=== PATIENT | female | born 1995 ===

== ENCOUNTER 2023-01-01 10:27 | Outpatient (AMB) | payer OTHER, SELFPAY ==
--- NOTE | 2023-01-01 10:31 | MHC.OFFWIV ---
Intake Vital Signs 01/01/23 10:38 Height 5 ft BP 132/70 Blood Pressure Location Lt brachial Position Sitting Pulse 99 Pulse Source Pulse Oximeter Temp 96.7 F L Temp Source Temporal Artery Scan Pulse Oximetry (%) 100 Oxygen Delivery Method Room Air Intake Visit Reasons: EST/left knee swelling Intake Note: Pt is here c/o sharp knee pain. Pt states she was going up some stairs when she first felt the sharp pain. Patient Tobacco Use Status: Never used Tobacco Allergies No Known Allergies Allergy (Verified 01/01/23 10:37) Do you need a note to return to daycare/school/sports/work: Yes HPI HPI Comments History of Present Illness Details The patient presents to urgent care for evaluation of left knee pain. She states that on Thursday she was walking up stairs at her mom's apartment and twisted her knee. Since then she has been having pain and swelling to the knee joint. She has been doing okay this week however today she thinks she twisted her knee again and now is walking with a limp. PFSH Social History Patient Tobacco Use Status: Never used Tobacco Review of Systems Const Reports no additional complaints ENT Reports no additional complaints Card Denies chest pain and Denies dyspnea Resp Denies cough and Denies dyspnea GI Denies abdominal pain Musc Reports as per HPI Neuro Denies focal weakness Psych Reports no additional complaints Physical Exam Vital Signs: Last Vital Signs Temp 96.7 F L 01/01/23 10:38 Pulse 99 01/01/23 10:38 BP 132/70 01/01/23 10:38 Pulse Ox 100 01/01/23 10:38 Oxygen Delivery Method Room Air 01/01/23 10:38 Const General: cooperative and healthy appearing Orientation/consciousness: patient oriented x3 Back/Spine/Pelvis Back: No back tenderness Skin General skin exam: no rashes or lesions noted Neuro General: patient oriented x3 Extrem Other: left Knee: Full range of motion. No erythema induration or abrasions. No ligamentous instability appreciated. Tenderness with palpation, medial/lat aspect No lower extremity edema Psych Attitude: cooperative Assessment & Plan Assessment & Plan (1) Knee sprain: Code(s): S83.90XA - Sprain of unspecified site of unspecified knee, initial encounter Plan: The patient's symptoms are consistent with a knee sprain. No bony deformity appreciated no radiographs indicated at this time. Will give knee immobilizer and recommend follow-up with PCP and orthopedics within the next couple of weeks. Recommend ibuprofen 600 mg every 6-8 hours Coding Level of Care Code Est Pt Level 3 (20402) Diagnoses Knee sprain S83.90XA
[2023-01-01 10:38] VITALS: BP 132/70; PULSE 99; TEMP 35.9; O2SAT 100
== END 2023-01-01 11:11 | disposition home or self-care (01) ==
PROVIDERS: Visit Provider Emergency Medicine
DX: S83.90XA Sprain of unspecified site of unspecified knee, initial encounter (principal)
CPT/HCPCS: 99213